=== PATIENT | female | born 1980 ===

== ENCOUNTER 2018-07-10 12:53 | Inpatient (IN) | payer SELFPAY ==
--- NOTE | 2018-07-10 13:25 | Emergency Department Report ---
Blank Doc - Documentation Documentation: This is a 38-year-old female that presents with chest pain with radiation to b ack. Stated has SOB as well. Tachycardia in traiage. This initial assessment/diagnostic orders/clinical plan/treatment(s) is/are subject to change based on patient's health status, clinical progression and re- assessment by fellow clinical providers in the ED. Further treatment and workup at subsequent clinical providers discretion. Patient/guardians urged not to elope from the ED as their condition may be serious if not clinically assessed and managed. Initial orders include: 1- Patient sent to [facility] for further evaluation and treatment 2- EKG 3- labs 4- CXR
[2018-07-10 14:04] LABS: Hematocrit 39.4 % (30.3-42.9); Hemoglobin 13.2 gm/dl (10.1-14.3); Mean Corpuscular HGB Conc 34 % (30-34); Mean Corpuscular Volume 86 fl (79-97); Platelet Count 326 K/mm3 (140-440); Red Blood Count 4.59 M/mm3 (3.65-5.03); Red Cell Distribution Width 13.7 % (13.2-15.2)
[2018-07-10 14:16] LABS: INR 1.07 (0.87-1.13)
[2018-07-10 14:17] LABS: Partial Thromboplastin Time 33.2 Sec. (24.2-36.6)
[2018-07-10 14:47] LABS: BUN/Creatinine Ratio 20; Blood Urea Nitrogen 10 mg/dL (7-17); Calcium 9.5 mg/dL (8.4-10.2); Hemolysis Index 6
[2018-07-10 14:48] LABS: Band Neutrophils # (Manual) 1.3 K/mm3; Basophils % (Manual) 0 % (0.0-1.8); Eosinophils % (Manual) 0 % (0.0-4.3); Total Cells Counted 100
[2018-07-10 14:49] LABS: Platelet Estimate Consistent w Auto; RBC Morphology Normal
--- NOTE | 2018-07-10 15:51 | Emergency Department Report ---
HPI <LAI GALEANOSINA Herbert - Last Filed: 07/10/18 23:31> - HPI HPI: 38-year-old female presents to the emergency department complaining of upper back pain that started last night and radiates around to her chest. She also complains of nausea without vomiting, throat pain and shortness of breath. She went to an urgent care clinic today where she said she was given a treatment and told to come to the emergency department. She denies any past medical history. No recent travel or sick contacts at home. She denies any tobacco or illicit drug use. She denies any fever, cough, nausea, vomiting or diaphoresis. <GREG CHILDS Finesse - Last Filed: 07/12/18 10:23> - General Chief Complaint: Chest Pain Time Seen by Provider: 07/10/18 13:23 ED Past Medical Hx <PEDRONITZA WALESKASINA Herbert - Last Filed: 07/10/18 23:31> - Past Medical History Previous Medical History?: No - Surgical History Past Surgical History?: No - Social History Smoking Status: Never Smoker Substance Use Type: None <GREG CHILDS Finesse - Last Filed: 07/12/18 10:23> - Medications Home Medications: Home Medications Medication Instructions Recorded Confirmed Last Taken Type Azithromycin [Zithromax Z-ANUSHKA] 250 mg PO BID #5 tablet 07/12/18 Unknown Rx HYDROcodone/APAP 5-325 [[place] 1 each PO Q4H PRN #10 tablet 07/12/18 Unknown Rx 5-325 mg TAB] methylPREDNISolone [Medrol] 4 mg PO DAILY 5 Days tab.ds.pk 07/12/18 Unknown Rx ED Review of Systems ROS: Stated complaint: CHEST/BACK PAIN Other details as noted in HPI <LAI GALEANOSINA Herbert - Last Filed: 07/10/18 23:31> ROS: Stated complaint: CHEST/BACK PAIN Other details as noted in HPI Comment: All other systems reviewed and negative Constitutional: denies: chills, fever Eyes: denies: eye pain, vision change ENT: throat pain. denies: ear pain Respiratory: shortness of breath. denies: cough Cardiovascular: chest pain. denies: edema Gastrointestinal: nausea. denies: abdominal pain, vomiting Genitourinary: denies: dysuria, discharge Musculoskeletal: back pain. denies: arthralgia Skin: denies: rash, lesions Neurological: denies: headache, weakness <GREG CHILDS S - Last Filed: 07/12/18 10:23> Physical Exam - Physical Exam Vital Signs: Vital Signs 07/10/18 07/10/18 07/10/18 13:22 16:26 16:55 Temperature 98.1 F 101.2 F H Pulse Rate 130 H Respiratory 20 18 Rate Blood Pressure 115/80 O2 Sat by Pulse 100 Oximetry 07/10/18 07/10/18 21:25 21:27 Temperature Pulse Rate 110 H 109 H Respiratory 12 16 Rate Blood Pressure 104/68 104/68 O2 Sat by Pulse Oximetry <SINA HOYT III - Last Filed: 07/10/18 23:31> - Physical Exam Vital Signs: Vital Signs 07/10/18 13:22 Temperature 98.1 F Pulse Rate 130 H Respiratory 20 Rate Blood Pressure 115/80 O2 Sat by Pulse 100 Oximetry Physical Exam: GENERAL: The patient is well-developed well-nourished. HENT: Normocephalic. Atraumatic. Patient has moist mucous membranes. There is bilateral tonsillar hypertrophy, erythema, and bilateral tonsillar exudates. No drooling or trismus. EYES: Extraocular motions are intact. Pupils equal reactive to light bilaterally. NECK: Supple. Trachea is midline. CHEST/LUNGS: Clear to auscultation. There is no respiratory distress noted. HEART/CARDIOVASCULAR: Regular. There is no tachycardia. There is no murmur. ABDOMEN: Abdomen is soft, nontender. Patient has normal bowel sounds. There is no abdominal distention. SKIN: Skin is warm and dry. NEURO: The patient is awake, alert, and oriented. The patient is cooperative. The patient has no focal neurologic deficits. The patient has normal speech. MUSCULOSKELETAL: There is no tenderness or deformity. There is no evidence of acute injury. <NAZGREG S - Last Filed: 07/12/18 10:23> ED Course Vital Signs 07/10/18 07/10/18 07/10/18 13:22 16:26 16:55 Temperature 98.1 F 101.2 F H Pulse Rate 130 H Respiratory 20 18 Rate Blood Pressure 115/80 O2 Sat by Pulse 100 Oximetry 07/10/18 07/10/18 21:25 21:27 Temperature Pulse Rate 110 H 109 H Respiratory 12 16 Rate Blood Pressure 104/68 104/68 O2 Sat by Pulse Oximetry - Reevaluation(s) Reevaluation #1: Discussed all results the patient. Patient agrees with plan of care and admission. Patient admitted to the hospitalist service. 07/10/18 23:35 - Consultations Consultation #1: Hospitalist consulted for admission. Hospitalist to admit patient. Hospitalist to assume care patient. Dr. Palumbo to see the patient 07/10/18 23:34 <SINA HOYT III - Last Filed: 07/10/18 23:31> Vital Signs 07/10/18 13:22 Temperature 98.1 F Pulse Rate 130 H Respiratory 20 Rate Blood Pressure 115/80 O2 Sat by Pulse 100 Oximetry <GREG CHILDS - Last Filed: 07/12/18 10:23> ED Medical Decision Making - Lab Data Result diagrams: 07/10/18 13:36 07/10/18 13:36 <SINA HOYT III - Last Filed: 07/10/18 23:31> - Lab Data Result diagrams: 07/12/18 05:24 07/12/18 05:24 - EKG Data -: EKG Interpreted by Me EKG shows normal: sinus rhythm, axis, intervals, QRS complexes, ST-T waves Rate: tachycardia (114 bpm) - EKG Data When compared to previous EKG there are: previous EKG unavailable Interpretation: other (sinus tachycardia.) - Radiology Data Radiology results: report reviewed, image reviewed interpreted by me: Chest x-ray does not show any acute process. There are no pleural effusions, obvious pneumonia and there is no pneumothorax. PROCEDURE: CT neck with contrast. TECHNIQUE: Computerized axial tomography of the soft tissue neck was performed following the IV injection of iodinated nonionic contrast. CT DOSE LENGTH PRODUCT: Not provided mGycm HISTORY: Neck pain. COMPARISONS: None . TECHNICAL QUALITY: Satisfactory. FINDINGS: The technologist has included images of the chest. There is a separate requisition for that study. I will limit my review to the images of the neck. The nasopharynx, oropharynx and hypopharynx appear normal. The larynx appears normal. The thyroid gland is normal in size. The parotid and submandibular salivary glands appear normal. There are numerous small cervical lymph nodes. The vascular structures enhance normally. There are no fluid collections. There are no abnormal masses. The bones appear intact. The mastoid air cells are clear. The paranasal sinuses are clear as far as visualized. IMPRESSION: Normal study. This document is electronically signed by Wayne Parnell MD., Jul 10 2018 10:41:26 PM ET Transcribed By: MARYANNE Dictated By: WAYNE PARNELL MD Electronically Authenticated By: WAYNE PARNELL MD Signed Date/Time: 07/10/18 2243 PROCEDURE: CT CHEST W CON TECHNIQUE: CT chest with intravenous contrast HISTORY: Chest pain COMPARISONS: FINDINGS: Heart and great vessels are unremarkable. No evidence for mediastinal mass or pathologic lymph node enlargement. No pulmonary infiltrate identified. No pleural fluid collections seen. Visualized portion of the upper abdomen mistreats no acute findings. IMPRESSION: No acute abnormality identified in the chest. This document is electronically signed by Leonardo Aguiar MD., Jul 10 2018 09:56:50 PM ET Transcribed By: MANJIT Dictated By: SOHEILA AGIUAR MD Electronically Authenticated By: SOHEILA AGUIAR MD Signed Date/Time: 07/10/18 3578 - Medical Decision Making Patient presents to the emergency department with throat pain, upper back pain that radiates around her chest. She does appear to have strep pharyngitis and this was confirmed with a rapid strep test. Her cardiac workup has been negative. However despite antibiotics, pain medication, IV fluid, she continues to have moderate tachycardia. Along with her 25,000 white count and fever, the patient is positive for sepsis. She will be admitted to hospital for further evaluation and treatment. - Differential Diagnosis strep pharyngitis, NM, peritonsillar abscess, retropharyngeal abscess <GREG CHILDS - Last Filed: 07/12/18 10:23> Critical care attestation.: If time is entered above; I have spent that time in minutes in the direct care of this critically ill patient, excluding procedure time. <SINA HOYT III - Last Filed: 07/10/18 23:31> Critical Care Time: No Critical care attestation.: If time is entered above; I have spent that time in minutes in the direct care of this critically ill patient, excluding procedure time. <GREG CHILDS - Last Filed: 07/12/18 10:23> ED Disposition Is pt being admited?: Yes Does the pt Need Aspirin: No Time of Disposition: 23:36 <SINA HOYT III - Last Filed: 07/10/18 23:31> Is pt being admited?: Yes <GREG CHILDS - Last Filed: 07/12/18 10:23> Clinical Impression: Tachycardia, Neck pain, Strep pharyngitis Sepsis Qualifiers: Sepsis type: sepsis due to unspecified organism Qualified Code(s): A41.9 - Sepsis, unspecified organism Chest pain Qualifiers: Chest pain type: unspecified Qualified Code(s): R07.9 - Chest pain, unspecified Fever Qualifiers: Fever type: unspecified Qualified Code(s): R50.9 - Fever, unspecified Disposition: DC-09 OP ADMIT IP TO THIS HOSP Condition: Fair
[2018-07-10] MEDS ORDERED: MORPHINE IV ONE (16:10)
[2018-07-10] MEDS ORDERED: ZITHROMAX 500 MG in NACL 0.9% 250ML 250 ML IV ONE (16:10)
--- NOTE | 2018-07-10 16:10 | XRay Report ---
PROCEDURE: XR CHEST 1V AP TECHNIQUE: Portable AP chest x-ray HISTORY: Chest Pain COMPARISONS: None FINDINGS: Heart size and pulmonary vasculature appear normal. No evidence of pulmonary edema or pleural effusio n. No endotracheal masses identified. No acute bone abnormalities are identified. There is mild thora cic scoliosis convex to the right upper thoracic spine. No acute bone abnormalities are seen. IMPRESSION: No evidence of acute cardiac or pulmonary process.. This document is electronically signed by Zbigniew Aden MD., Jul 10 2018 04:09:15 PM ET
[2018-07-10] MEDS ORDERED: NACL 0.9% 1000 ML 1,000 ML IV ONE ×2 (16:12→18:04)
[2018-07-10] MEDS ORDERED: TYLENOL PO ONE (18:04)
[2018-07-10] MEDS ORDERED: TORADOL IV ONE (18:04)
--- NOTE | 2018-07-10 21:58 | Cat Scan Report ---
PROCEDURE: CT CHEST W CON TECHNIQUE: CT chest with intravenous contrast HISTORY: Chest pain COMPARISONS: FINDINGS: Heart and great vessels are unremarkable. No evidence for mediastinal mass or pathologic lymph node enlargement. No pulmonary infiltrate identified. No pleural fluid collections seen. Visualized portion of the upper abdomen mistreats no acute findings. IMPRESSION: No acute abnormality identified in the chest. This document is electronically signed by Leonardo Sanchez MD., Jul 10 2018 09:56:50 PM ET
--- NOTE | 2018-07-10 22:43 | Cat Scan Report ---
PROCEDURE: CT neck with contrast. TECHNIQUE: Computerized axial tomography of the soft tissue neck was performed following the IV inje ction of iodinated nonionic contrast. CT DOSE LENGTH PRODUCT: Not provided mGycm HISTORY: Neck pain. COMPARISONS: None . TECHNICAL QUALITY: Satisfactory. FINDINGS: The technologist has included images of the chest. There is a separate requisition for that study. I will limit my review to the images of the neck. The nasopharynx, oropharynx and hypopharynx appear normal. The larynx appears normal. The thyroid gla nd is normal in size. The parotid and submandibular salivary glands appear normal. There are numerous small cervical lymph nodes. The vascular structures enhance normally. There are no fluid collections . There are no abnormal masses. The bones appear intact. The mastoid air cells are clear. The paranas al sinuses are clear as far as visualized. IMPRESSION: Normal study. This document is electronically signed by Wayne Betancur MD., Jul 10 2018 10:41:26 PM ET
[2018-07-10 22:54] LABS: Bacteria,Urine 1+ /HPF (Negative); Bilirubin,Urine NEG (Negative); Blood,Urine MOD (Negative); Color,Urine Yellow (Yellow); Mucus,Urine FEW /HPF; Protein,Urine <15 mg/dL mg/dL (Negative); Urobilinogen,Urine < 2.0 mg/dL (<2.0)
[2018-07-10 22:58] LABS: Amphetamine Screen,Urine PRESUMPTIVE NEGATIVE; Benzodiazepines Screen,Urine PRESUMPTIVE NEGATIVE; Cannabinoid Screen,Urine PRESUMPTIVE NEGATIVE; Cocaine Screen,Urine PRESUMPTIVE NEGATIVE; Methadone Screen,Urine PRESUMPTIVE NEGATIVE; Opiate Screen,Urine PRESUMPTIVE NEGATIVE
[2018-07-11] MEDS ORDERED: TYLENOL PO PRN (01:06)
[2018-07-11] MEDS ORDERED: SODIUM CHLORIDE FLUSH SYRINGE 10 ML IV PRN (01:06)
[2018-07-11] MEDS ORDERED: NACL 0.9% 1000 ML 1,000 ML IV ONE ×2 (01:09→16:00)
[2018-07-11] MEDS: NORCO 5/325 PO PRN ×4 (01:43→21:02)
--- NOTE | 2018-07-11 03:40 | History and Physical Report ---
History of Present Illness Date of examination: 07/11/18 Chief complaint: Upper back pain History of present illness: Patient is a 38-year-old female with no known past medical history who presented to the ED on account of 2 days history of upper back pain radiating to her chest. She has positive history of sore throat, fever with chills, palpitation, headaches, nausea without vomiting and lightheadedness. She denies shortness of breath, diaphoresis, cough, runny nose, leg swelling, orthopnea or PND. No syncope or loss of consciousness. No abdominal pain, constipation, diarrhea, bleeding from any orifice, dysuria or frequency. Past History Past Medical History: No medical history Past Surgical History: No surgical history Social history: no significant social history (she denies tobacco, alcohol or illicit drug use) Family history: no significant family history (reviewed and noncontributory) Medications and Allergies Allergies Allergy/AdvReac Type Severity Reaction Status Date / Time No Known Allergies Allergy Unverified 07/10/18 13:25 Home Medications Medication Instructions Recorded Confirmed Last Taken Type No Known Home Medications [No 07/10/18 07/10/18 Unknown History Reported Home Medications] Active Meds: Active Medications Acetaminophen (Tylenol) 650 mg PO Q4H PRN PRN Reason: Pain MILD(1-3)/Fever >100.5/FREED Acetaminophen/Hydrocodone Bitart ([place] 5/325) 1 each PO Q4H PRN PRN Reason: Pain, Moderate (4-6) Last Admin: 07/11/18 01:43 Dose: 1 each Documented by: Sodium Chloride (Nacl 0.9% 1000 Ml) 1,000 mls @ 125 mls/hr IV DIRECT ROLAN Azithromycin 500 mg/ Sodium (Chloride) 250 mls @ 250 mls/hr IV Q24HR ROLAN Ondansetron HCl (Zofran) 4 mg IV Q8H PRN PRN Reason: Nausea And Vomiting Sodium Chloride (Sodium Chloride Flush Syringe 10 Ml) 10 ml IV BID ROLAN Sodium Chloride (Sodium Chloride Flush Syringe 10 Ml) 10 ml IV PRN PRN PRN Reason: LINE FLUSH Review of Systems All systems: negative (except as documented in the HPI, all other systems were reviewed and negative) Exam - Constitutional Vitals: Temp Pulse Resp BP Pulse Ox 99.1 F 90 18 102/61 97 07/10/18 22:15 07/11/18 02:30 07/11/18 02:43 07/11/18 02:30 07/11/18 02:30 General appearance: Present: no acute distress, well-nourished - EENT Eyes: Present: PERRL ENT: hearing intact, clear oral mucosa - Neck Neck: Present: supple, normal ROM - Respiratory Respiratory effort: normal Respiratory: bilateral: CTA - Cardiovascular Rhythm: regular (with tachycardia) Heart Sounds: Present: S1 & S2. Absent: rub, click - Extremities Extremities: No edema Peripheral Pulses: within normal limits - Abdominal General gastrointestinal: Present: soft, non-tender, non-distended, normal bowel sounds Female genitourinary: Present: deferred - Integumentary Integumentary: Present: clear, warm, dry - Musculoskeletal Musculoskeletal: gait normal, strength equal bilaterally - Psychiatric Psychiatric: appropriate mood/affect, intact judgment & insight - Neurologic Neurologic: CNII-XII intact, moves all extremities Results - Labs CBC & Chem 7: 07/10/18 13:36 07/10/18 13:36 Labs: Laboratory Last Values WBC 25.8 K/mm3 (4.5-11.0) H 07/10/18 13:36 RBC 4.59 M/mm3 (3.65-5.03) 07/10/18 13:36 Hgb 13.2 gm/dl (10.1-14.3) 07/10/18 13:36 Hct 39.4 % (30.3-42.9) 07/10/18 13:36 MCV 86 fl (79-97) 07/10/18 13:36 MCH 29 pg (28-32) 07/10/18 13:36 MCHC 34 % (30-34) 07/10/18 13:36 RDW 13.7 % (13.2-15.2) 07/10/18 13:36 Plt Count 326 K/mm3 (140-440) 07/10/18 13:36 Add Manual Diff Complete 07/10/18 13:36 Total Counted 100 07/10/18 13:36 Seg Neutrophils % [employer] 07/10/18 13:36 Seg Neuts % (Manual) 90.0 % (40.0-70.0) H 07/10/18 13:36 Band Neutrophils % 5.0 % 07/10/18 13:36 Lymphocytes % (Manual) 4.0 % (13.4-35.0) L 07/10/18 13:36 Reactive Lymphs % (Man) 0 % 07/10/18 13:36 Monocytes % (Manual) 1.0 % (0.0-7.3) 07/10/18 13:36 Eosinophils % (Manual) 0 % (0.0-4.3) 07/10/18 13:36 Basophils % (Manual) 0 % (0.0-1.8) 07/10/18 13:36 Metamyelocytes % 0 % 07/10/18 13:36 Myelocytes % 0 % 07/10/18 13:36 Promyelocytes % 0 % 07/10/18 13:36 Blast Cells % 0 % 07/10/18 13:36 Nucleated RBC % Not Reportable 07/10/18 13:36 Seg Neutrophils # Man 23.2 K/mm3 (1.8-7.7) H 07/10/18 13:36 Band Neutrophils # 1.3 K/mm3 07/10/18 13:36 Lymphocytes # (Manual) 1.0 K/mm3 (1.2-5.4) L 07/10/18 13:36 Abs React Lymphs (Man) 0.0 K/mm3 07/10/18 13:36 Monocytes # (Manual) 0.3 K/mm3 (0.0-0.8) 07/10/18 13:36 Eosinophils # (Manual) 0.0 K/mm3 (0.0-0.4) 07/10/18 13:36 Basophils # (Manual) 0.0 K/mm3 (0.0-0.1) 07/10/18 13:36 Metamyelocytes # 0.0 K/mm3 07/10/18 13:36 Myelocytes # 0.0 K/mm3 07/10/18 13:36 Promyelocytes # 0.0 K/mm3 07/10/18 13:36 Blast Cells # 0.0 K/mm3 07/10/18 13:36 WBC Morphology Not Reportable 07/10/18 13:36 Hypersegmented Neuts Not Reportable 07/10/18 13:36 Hyposegmented Neuts Not Reportable 07/10/18 13:36 Hypogranular Neuts Not Reportable 07/10/18 13:36 Smudge Cells Not Reportable 07/10/18 13:36 Toxic Granulation Not Reportable 07/10/18 13:36 Toxic Vacuolation Not Reportable 07/10/18 13:36 Dohle Bodies Not Reportable 07/10/18 13:36 Pelger-Huet Anomaly Not Reportable 07/10/18 13:36 Cj Rods Not Reportable 07/10/18 13:36 Platelet Estimate Consistent w auto 07/10/18 13:36 Clumped Platelets Not Reportable 07/10/18 13:36 Plt Clumps, EDTA Not Reportable 07/10/18 13:36 Large Platelets Not Reportable 07/10/18 13:36 Giant Platelets Not Reportable 07/10/18 13:36 Platelet Satelliting Not Reportable 07/10/18 13:36 Plt Morphology Comment Not Reportable 07/10/18 13:36 RBC Morphology Normal 07/10/18 13:36 Dimorphic RBCs Not Reportable 07/10/18 13:36 Polychromasia Not Reportable 07/10/18 13:36 Hypochromasia Not Reportable 07/10/18 13:36 Poikilocytosis Not Reportable 07/10/18 13:36 Anisocytosis Not Reportable 07/10/18 13:36 Microcytosis Not Reportable 07/10/18 13:36 Macrocytosis Not Reportable 07/10/18 13:36 Spherocytes Not Reportable 07/10/18 13:36 Pappenheimer Bodies Not Reportable 07/10/18 13:36 Sickle Cells Not Reportable 07/10/18 13:36 Target Cells Not Reportable 07/10/18 13:36 Tear Drop Cells Not Reportable 07/10/18 13:36 Ovalocytes Not Reportable 07/10/18 13:36 Helmet Cells Not Reportable 07/10/18 13:36 [place] Bodies Not Reportable 07/10/18 13:36 Gallina Rings Not Reportable 07/10/18 13:36 John Cells Not Reportable 07/10/18 13:36 Bite Cells Not Reportable 07/10/18 13:36 Crenated Cell Not Reportable 07/10/18 13:36 Elliptocytes Not Reportable 07/10/18 13:36 Acanthocytes (Spur) Not Reportable 07/10/18 13:36 Rouleaux Not Reportable 07/10/18 13:36 Hemoglobin C Crystals Not Reportable 07/10/18 13:36 Schistocytes Not Reportable 07/10/18 13:36 Malaria parasites Not Reportable 07/10/18 13:36 Kieran Bodies Not Reportable 07/10/18 13:36 Hem Pathologist Commnt No 07/10/18 13:36 PT 14.6 Sec. (12.2-14.9) 07/10/18 13:36 INR 1.07 (0.87-1.13) 07/10/18 13:36 APTT 33.2 Sec. (24.2-36.6) 07/10/18 13:36 D-Dimer 136.45 ng/mlDDU (0-234) 07/10/18 13:36 Sodium 137 mmol/L (137-145) 07/10/18 13:36 Potassium 4.3 mmol/L (3.6-5.0) 07/10/18 13:36 Chloride 99.7 mmol/L (98-107) 07/10/18 13:36 Carbon Dioxide 22 mmol/L (22-30) 07/10/18 13:36 Anion Gap 20 mmol/L 07/10/18 13:36 BUN 10 mg/dL (7-17) 07/10/18 13:36 Creatinine 0.5 mg/dL (0.7-1.2) L 07/10/18 13:36 Estimated GFR > 60 ml/min 07/10/18 13:36 BUN/Creatinine Ratio 20 % 07/10/18 13:36 Glucose 117 mg/dL (65-100) H 07/10/18 13:36 Lactic Acid 0.50 mmol/L (0.7-2.0) L 07/10/18 19:59 Calcium 9.5 mg/dL (8.4-10.2) 07/10/18 13:36 Troponin T < 0.010 ng/mL (0.00-0.029) 07/10/18 16:13 HCG, Qual Negative (Negative) 07/10/18 13:36 Urine Color Yellow (Yellow) 07/10/18 22:27 Urine Turbidity Clear (Clear) 07/10/18 22:27 Urine pH 7.0 (5.0-7.0) 07/10/18 22:27 Ur Specific [place] 1.060 (1.003-1.030) H 07/10/18 22:27 Urine Protein <15 mg/dl mg/dL (Negative) 07/10/18 22:27 Urine Glucose (UA) Neg mg/dL (Negative) 07/10/18 22:27 Urine Ketones 80 mg/dL (Negative) 07/10/18 22:27 Urine Blood Mod (Negative) 07/10/18 22:27 Urine Nitrite Neg (Negative) 07/10/18 22:27 Urine Bilirubin Neg (Negative) 07/10/18 22:27 Urine Urobilinogen < 2.0 mg/dL (<2.0) 07/10/18 22:27 Ur Leukocyte Esterase Neg (Negative) 07/10/18 22:27 Urine WBC (Auto) 2.0 /HPF (0.0-6.0) 07/10/18 22:27 Urine RBC (Auto) 39.0 /HPF (0.0-6.0) 07/10/18 22:27 U Epithel Cells (Auto) 1.0 /HPF (0-13.0) 07/10/18 22:27 Urine Bacteria (Auto) 1+ /HPF (Negative) 07/10/18 22:27 Urine Mucus Few /HPF 07/10/18 22:27 Urine Opiates Screen Presumptive negative 07/10/18 22:27 Urine Methadone Screen Presumptive negative 07/10/18 22:27 Ur Barbiturates Screen Presumptive negative 07/10/18 22:27 Ur Phencyclidine Scrn Presumptive negative 07/10/18 22:27 Ur Amphetamines Screen Presumptive negative 07/10/18 22:27 U Benzodiazepines Scrn Presumptive negative 07/10/18 22:27 Urine Cocaine Screen Presumptive negative 07/10/18 22:27 U Marijuana (THC) Screen Presumptive negative 07/10/18 22:27 Drugs of Abuse Note Disclamer 07/10/18 22:27 Group A Strep Rapid Positive (Negative) A 07/10/18 15:10 Assessment and Plan Assessment and plan: Sepsis probably secondary to strept pharyngitis -On IV antibiotic -Chest CT scan negative -Urinalysis negative. Blood cultures pending Hypotension secondary to the sepsis -On IV fluid, will monitor blood pressure Atypical chest pain -Serial troponin level monitoring DVT prophylaxis with SCD Disposition: For discharge when medically stable Time spent: 38 minutes
[2018-07-11] MEDS ORDERED: NACL 0.9% 1000 ML 1,000 ML ONE (04:15)
[2018-07-11 08:52] LABS: Basophils # (Auto) 0.1 K/mm3 (0.0-0.1); Basophils % (Auto) 0.5 % (0.0-1.8); Eosinophils # (Auto) 0.1 K/mm3 (0.0-0.4); Eosinophils % (Auto) 0.8 % (0.0-4.3); Hematocrit 35.5 % (30.3-42.9); Hemoglobin 11.8 gm/dl (10.1-14.3); Lymphocytes # (Auto) 1.5 K/mm3 (1.2-5.4); Mean Corpuscular HGB Conc 33 % (30-34); Mean Corpuscular Volume 86 fl (79-97); Monocytes % (Auto) 6.1 % (0.0-7.3); Platelet Count 258 K/mm3 (140-440); Red Blood Count 4.11 M/mm3 (3.65-5.03); Red Cell Distribution Width 13.8 % (13.2-15.2)
[2018-07-11] MEDS: SODIUM CHLORIDE FLUSH SYRINGE 10 ML IV SCH ×2 (10:38→21:05)
[2018-07-11] MEDS: ZITHROMAX 500 MG in NACL 0.9% 250ML 250 ML IV SCH (10:39)
[2018-07-11] MEDS: NACL 0.9% 1000 ML 1,000 ML IV SCH ×2 (10:40→17:37)
[2018-07-11] MEDS ORDERED: AFLURIA QUAD 2018-2019 SYRINGE IM ONE (12:00)
[2018-07-11] MEDS: MEDROL PO SCH (13:25)
--- NOTE | 2018-07-11 15:00 | Progress Note ---
Assessment and Plan Assessment and plan: Patient is a 38-year-old female with no known past medical history who presented to the ED on account of 2 days history of upper back pain radiating to her chest. She has positive history of sore throat, fever with chills, palpitation, headaches, nausea without vomiting and lightheadedness. She denies shortness of breath, diaphoresis, cough, runny nose, leg swelling, orthopnea or PND. No syncope or loss of consciousness. No abdominal pain, constipation, diarrhea, bleeding from any orifice, dysuria or frequency. Sepsis probably secondary to strept pharyngitis -On IV antibiotic -Chest CT scan negative -Urinalysis negative. Blood cultures pending -WBC trended down. -will add steroids due to patient's mentation off without aphasia. Hypotension secondary to the sepsis -On IV fluid, will monitor blood pressure Atypical chest pain -Serial troponin level monitoring -Likely secondary to strep throat. DVT prophylaxis with SCD Disposition: For discharge when medically stable Plan of care discussed with the patient detail Despite a discharge of 24-48 hours History Interval history: Patient is on examining today in no acute distress still reports some odynophagia with swallowing. Otherwise denies any nausea vomiting or diarrhea. She denies of this time any chest pain. Hospitalist Physical - Physical exam Narrative exam: VITAL SIGNS: Reviewed. GENERAL: The patient appeared well nourished and normally developed, Vital signs as documented. HEAD: No signs of head trauma. EYES: Pupils are equal. Extraocular motions intact. EARS: Hearing grossly intact. MOUTH: Oropharynx is normal. NECK: No adenopathy, no JVD. Mildly tender on the right side. CHEST: Chest with clear breath sounds bilaterally. No wheezes, rales, or rhonchi. CARDIAC: Regular rate and rhythm. S1 and S2, without murmurs, gallops, or rubs. VASCULAR: No Edema. Peripheral pulses normal and equal in all extremities. ABDOMEN: Soft, non tender and non distended. No rebound or guarding, and no masses palpated. Bowel Sounds normal. MUSCULOSKELETAL: Good range of motion of all major joints. Extremities without clubbing, cyanosis or edema. NEUROLOGIC EXAM: Alert and oriented x 3 No focal sensory or strength deficits. Speech normal. Follows commands. PSYCHIATRIC: Mood normal. SKIN: No rash or lesions. - Constitutional Vitals: Temp Pulse Resp BP Pulse Ox 97.7 F 86 18 89/61 100 07/11/18 11:29 07/11/18 11:29 07/11/18 11:29 07/11/18 11:29 07/11/18 11:29 General appearance: Present: no acute distress, well-nourished Results - Labs CBC & Chem 7: 07/11/18 08:29 07/10/18 13:36 Labs: Laboratory Last Values WBC 16.8 K/mm3 (4.5-11.0) H 07/11/18 08:29 RBC 4.11 M/mm3 (3.65-5.03) 07/11/18 08:29 Hgb 11.8 gm/dl (10.1-14.3) 07/11/18 08:29 Hct 35.5 % (30.3-42.9) 07/11/18 08:29 MCV 86 fl (79-97) 07/11/18 08:29 MCH 29 pg (28-32) 07/11/18 08: MCHC 33 % (30-34) 07/11/18 08:29 RDW 13.8 % (13.2-15.2) 07/11/18 08:29 Plt Count 258 K/mm3 (140-440) 07/11/18 08:29 Lymph % (Auto) 9.0 % (13.4-35.0) L 07/11/18 08:29 [place] % (Auto) 6.1 % (0.0-7.3) 07/11/18 08:29 Eos % (Auto) 0.8 % (0.0-4.3) 07/11/18 08:29 Baso % (Auto) 0.5 % (0.0-1.8) 07/11/18 08:29 Lymph # 1.5 K/mm3 (1.2-5.4) 07/11/18 08:29 [place] # 1.0 K/mm3 (0.0-0.8) H 07/11/18 08:29 Eos # 0.1 K/mm3 (0.0-0.4) 07/11/18 08:29 Baso # 0.1 K/mm3 (0.0-0.1) 07/11/18 08:29 Add Manual Diff Complete 07/10/18 13:36 Total Counted 100 07/10/18 13:36 Seg Neutrophils % 83.6 % (40.0-70.0) H 07/11/18 08:29 Seg Neuts % (Manual) 90.0 % (40.0-70.0) H 07/10/18 13:36 Band Neutrophils % 5.0 % 07/10/18 13:36 Lymphocytes % (Manual) 4.0 % (13.4-35.0) L 07/10/18 13:36 Reactive Lymphs % (Man) 0 % 07/10/18 13:36 Monocytes % (Manual) 1.0 % (0.0-7.3) 07/10/18 13:36 Eosinophils % (Manual) 0 % (0.0-4.3) 07/10/18 13:36 Basophils % (Manual) 0 % (0.0-1.8) 07/10/18 13:36 Metamyelocytes % 0 % 07/10/18 13:36 Myelocytes % 0 % 07/10/18 13:36 Promyelocytes % 0 % 07/10/18 13:36 Blast Cells % 0 % 07/10/18 13:36 Nucleated RBC % Not Reportable 07/10/18 13:36 Seg Neutrophils # 14.1 K/mm3 (1.8-7.7) H 07/11/18 08:29 Seg Neutrophils # Man 23.2 K/mm3 (1.8-7.7) H 07/10/18 13:36 Band Neutrophils # 1.3 K/mm3 07/10/18 13:36 Lymphocytes # (Manual) 1.0 K/mm3 (1.2-5.4) L 07/10/18 13:36 Abs React Lymphs (Man) 0.0 K/mm3 07/10/18 13:36 Monocytes # (Manual) 0.3 K/mm3 (0.0-0.8) 07/10/18 13:36 Eosinophils # (Manual) 0.0 K/mm3 (0.0-0.4) 07/10/18 13:36 Basophils # (Manual) 0.0 K/mm3 (0.0-0.1) 07/10/18 13:36 Metamyelocytes # 0.0 K/mm3 07/10/18 13:36 Myelocytes # 0.0 K/mm3 07/10/18 13:36 Promyelocytes # 0.0 K/mm3 07/10/18 13:36 Blast Cells # 0.0 K/mm3 07/10/18 13:36 WBC Morphology Not Reportable 07/10/18 13:36 Hypersegmented Neuts Not Reportable 07/10/18 13:36 Hyposegmented Neuts Not Reportable 07/10/18 13:36 Hypogranular Neuts Not Reportable 07/10/18 13:36 Smudge Cells Not Reportable 07/10/18 13:36 Toxic Granulation Not Reportable 07/10/18 13:36 Toxic Vacuolation Not Reportable 07/10/18 13:36 Dohle Bodies Not Reportable 07/10/18 13:36 Pelger-Huet Anomaly Not Reportable 07/10/18 13:36 Cj Rods Not Reportable 07/10/18 13:36 Platelet Estimate Consistent w auto 07/10/18 13:36 Clumped Platelets Not Reportable 07/10/18 13:36 Plt Clumps, EDTA Not Reportable 07/10/18 13:36 Large Platelets Not Reportable 07/10/18 13:36 Giant Platelets Not Reportable 07/10/18 13:36 Platelet Satelliting Not Reportable 07/10/18 13:36 Plt Morphology Comment Not Reportable 07/10/18 13:36 RBC Morphology Normal 07/10/18 13:36 Dimorphic RBCs Not Reportable 07/10/18 13:36 Polychromasia Not Reportable 07/10/18 13:36 Hypochromasia Not Reportable 07/10/18 13:36 Poikilocytosis Not Reportable 07/10/18 13:36 Anisocytosis Not Reportable 07/10/18 13:36 Microcytosis Not Reportable 07/10/18 13:36 Macrocytosis Not Reportable 07/10/18 13:36 Spherocytes Not Reportable 07/10/18 13:36 Pappenheimer Bodies Not Reportable 07/10/18 13:36 Sickle Cells Not Reportable 07/10/18 13:36 Target Cells Not Reportable 07/10/18 13:36 Tear Drop Cells Not Reportable 07/10/18 13:36 Ovalocytes Not Reportable 07/10/18 13:36 Helmet Cells Not Reportable 07/10/18 13:36 Duncan-Kremmling Bodies Not Reportable 07/10/18 13:36 [place] Rings Not Reportable 07/10/18 13:36 Lapaz Cells Not Reportable 07/10/18 13:36 Bite Cells Not Reportable 07/10/18 13:36 Crenated Cell Not Reportable 07/10/18 13:36 Elliptocytes Not Reportable 07/10/18 13:36 Acanthocytes (Spur) Not Reportable 07/10/18 13:36 Rouleaux Not Reportable 07/10/18 13:36 Hemoglobin C Crystals Not Reportable 07/10/18 13:36 Schistocytes Not Reportable 07/10/18 13:36 Malaria parasites Not Reportable 07/10/18 13:36 Kieran Bodies Not Reportable 07/10/18 13:36 Hem Pathologist Commnt No 07/10/18 13:36 PT 14.6 Sec. (12.2-14.9) 07/10/18 13:36 INR 1.07 (0.87-1.13) 07/10/18 13:36 APTT 33.2 Sec. (24.2-36.6) 07/10/18 13:36 D-Dimer 136.45 ng/mlDDU (0-234) 07/10/18 13:36 Sodium 137 mmol/L (137-145) 07/10/18 13:36 Potassium 4.3 mmol/L (3.6-5.0) 07/10/18 13:36 Chloride 99.7 mmol/L (98-107) 07/10/18 13:36 Carbon Dioxide 22 mmol/L (22-30) 07/10/18 13:36 Anion Gap 20 mmol/L 07/10/18 13:36 BUN 10 mg/dL (7-17) 07/10/18 13:36 Creatinine 0.5 mg/dL (0.7-1.2) L 07/10/18 13:36 Estimated GFR > 60 ml/min 07/10/18 13:36 BUN/Creatinine Ratio 20 % 07/10/18 13:36 Glucose 117 mg/dL (65-100) H 07/10/18 13:36 POC Glucose 125 (70-105) H 07/11/18 11:35 Lactic Acid 0.50 mmol/L (0.7-2.0) L 07/10/18 19:59 Calcium 9.5 mg/dL (8.4-10.2) 07/10/18 13:36 Troponin T < 0.010 ng/mL (0.00-0.029) 07/10/18 16:13 HCG, Qual Negative (Negative) 07/10/18 13:36 Urine Color Yellow (Yellow) 07/10/18 22:27 Urine Turbidity Clear (Clear) 07/10/18 22:27 Urine pH 7.0 (5.0-7.0) 07/10/18 22:27 Ur Specific [place] 1.060 (1.003-1.030) H 07/10/18 22:27 Urine Protein <15 mg/dl mg/dL (Negative) 07/10/18 22:27 Urine Glucose (UA) Neg mg/dL (Negative) 07/10/18 22:27 Urine Ketones 80 mg/dL (Negative) 07/10/18 22:27 Urine Blood Mod (Negative) 07/10/18 22:27 Urine Nitrite Neg (Negative) 07/10/18 22:27 Urine Bilirubin Neg (Negative) 07/10/18 22:27 Urine Urobilinogen < 2.0 mg/dL (<2.0) 07/10/18 22:27 Ur Leukocyte Esterase Neg (Negative) 07/10/18 22:27 Urine WBC (Auto) 2.0 /HPF (0.0-6.0) 07/10/18 22:27 Urine RBC (Auto) 39.0 /HPF (0.0-6.0) 07/10/18 22:27 U Epithel Cells (Auto) 1.0 /HPF (0-13.0) 07/10/18 22:27 Urine Bacteria (Auto) 1+ /HPF (Negative) 07/10/18 22:27 Urine Mucus Few /HPF 07/10/18 22:27 Urine Opiates Screen Presumptive negative 07/10/18 22:27 Urine Methadone Screen Presumptive negative 07/10/18 22:27 Ur Barbiturates Screen Presumptive negative 07/10/18 22:27 Ur Phencyclidine Scrn Presumptive negative 07/10/18 22:27 Ur Amphetamines Screen Presumptive negative 07/10/18 22:27 U Benzodiazepines Scrn Presumptive negative 07/10/18 22:27 Urine Cocaine Screen Presumptive negative 07/10/18 22:27 U Marijuana (THC) Screen Presumptive negative 07/10/18 22:27 Drugs of Abuse Note Disclamer 07/10/18 22:27 Group A Strep Rapid Positive (Negative) A 07/10/18 15:10 Active Medications - Current Medications Current Medications: Generic Name Dose Route Start Last Admin Trade Name Freq PRN Reason Stop Dose Admin Acetaminophen 650 mg 07/11/18 01:06 Tylenol PO Q4H PRN Pain MILD(1-3)/Fever >100.5/FREED Acetaminophen/Hydrocodone Bitart 1 each 07/11/18 01:06 07/11/18 08:30 [place] 5/325 PO 1 each Q4H PRN Administration Pain, Moderate (4-6) Sodium Chloride 1,000 mls @ 125 mls/hr 07/11/18 02:00 07/11/18 10:40 Nacl 0.9% 1000 Ml IV 125 mls/hr DIRECT ROLAN Administration Azithromycin 500 mg/ Sodium 250 mls @ 250 mls/hr 07/11/18 10:00 07/11/18 10:39 Chloride IV 250 mls/hr Q24HR ROLAN Administration Methylprednisolone 4 mg 07/11/18 14:00 07/11/18 13:25 Medrol PO 4 mg QDAY ROLAN Administration Ondansetron HCl 4 mg 07/11/18 01:06 Zofran IV Q8H PRN Nausea And Vomiting Sodium Chloride 10 ml 07/11/18 10:00 07/11/18 10:38 Sodium Chloride Flush Syringe 10 Ml IV 10 ml BID ROLAN Administration Sodium Chloride 10 ml 07/11/18 01:06 Sodium Chloride Flush Syringe 10 Ml IV PRN PRN LINE FLUSH
[2018-07-11] MEDS: ZOFRAN IV PRN (16:05)
[2018-07-12] MEDS: NACL 0.9% 1000 ML 1,000 ML IV SCH (01:40)
[2018-07-12 05:45] LABS: Basophils # (Auto) 0.1 K/mm3 (0.0-0.1); Basophils % (Auto) 0.7 % (0.0-1.8); Eosinophils # (Auto) 0.2 K/mm3 (0.0-0.4); Eosinophils % (Auto) 1.7 % (0.0-4.3); Hemoglobin 11.2 gm/dl (10.1-14.3); Lymphocytes # (Auto) 2.6 K/mm3 (1.2-5.4); Lymphocytes % (Auto) 21.5 % (13.4-35.0); Mean Corpuscular HGB Conc 34 % (30-34); Mean Corpuscular Volume 86 fl (79-97); Monocytes # (Auto) 0.8 K/mm3 (0.0-0.8); Monocytes % (Auto) 6.9 % (0.0-7.3); Platelet Count 272 K/mm3 (140-440); Red Blood Count 3.85 M/mm3 (3.65-5.03); Red Cell Distribution Width 13.5 % (13.2-15.2)
[2018-07-12 06:10] LABS: BUN/Creatinine Ratio 8; Blood Urea Nitrogen 3 mg/dL (7-17); Calcium 7.8 mg/dL (8.4-10.2); Hemolysis Index 3
[2018-07-12] MEDS: NORCO 5/325 PO PRN (08:44)
[2018-07-12] MEDS: ZOFRAN IV PRN (09:03)
[2018-07-12] MEDS: SODIUM CHLORIDE FLUSH SYRINGE 10 ML IV SCH (09:03)
[2018-07-12] MEDS: MEDROL PO SCH (09:03)
[2018-07-12] MEDS: ZITHROMAX 500 MG in NACL 0.9% 250ML 250 ML IV SCH (09:04)
[2018-07-12] MEDS ORDERED: K-DUR PO NR (09:34)
--- NOTE | 2018-07-12 09:39 | Discharge Summary ---
Providers - Providers Date of Admission: 07/11/18 01:16 Attending physician: DARY PARK MD [facility] Hospital[facility] Reason for admission: NECK PAIN Condition: Fair Hospital course: Patient is a 38-year-old female with no known past medical history who presented to the ED on account of 2 days history of upper back pain radiating to her chest. She has positive history of sore throat, fever with chills, palpitation, headaches, nausea without vomiting and lightheadedness. She denies shortness of breath, diaphoresis, cough, runny nose, leg swelling, orthopnea or PND. No syncope or loss of consciousness. No abdominal pain, constipation, diarrhea, bleeding from any orifice, dysuria or frequency. Sepsis probably secondary to strept pharyngitis - Treated with IV antibiotic, Now afebrile, tolerating PO, will plan on discharge to complete outpatient oral anbx - Patient improved faster than expected -Chest CT scan negative -Urinalysis negative. Blood cultures pending -WBC trended down. -Continue steroids for 3 days for dysphagia. Hypotension secondary to the sepsis -treated with fluids Atypical chest pain -Serial troponin level monitoring and was negative. Pain more in the left side of the neck and resolved -Likely secondary to strep throat. Disposition: DC-01 TO HOME OR SELFCARE Time spent for discharge: 35 MINS Core Measure Documentation - Palliative Care Palliative Care/ Comfort Measures: Not Applicable - Core Measures Any of the following diagnoses?: none Exam - Physical Exam Narrative exam: VITAL SIGNS: Reviewed. GENERAL: The patient appeared well nourished and normally developed, Vital signs as documented. HEAD: No signs of head trauma. EYES: Pupils are equal. Extraocular motions intact. EARS: Hearing grossly intact. MOUTH: Oropharynx is normal. NECK: No adenopathy, no JVD. Mildly tender on the right side. CHEST: Chest with clear breath sounds bilaterally. No wheezes, rales, or rhonchi. CARDIAC: Regular rate and rhythm. S1 and S2, without murmurs, gallops, or rubs. VASCULAR: No Edema. Peripheral pulses normal and equal in all extremities. ABDOMEN: Soft, non tender and non distended. No rebound or guarding, and no masses palpated. Bowel Sounds normal. MUSCULOSKELETAL: Good range of motion of all major joints. Extremities without clubbing, cyanosis or edema. NEUROLOGIC EXAM: Alert and oriented x 3 No focal sensory or strength deficits. Speech normal. Follows commands. PSYCHIATRIC: Mood normal. SKIN: No rash or lesions. - Constitutional Vitals: Temp Pulse Resp BP Pulse Ox 97.9 F 84 16 90/55 99 07/12/18 04:10 07/12/18 04:10 07/12/18 04:10 07/12/18 04:10 07/12/18 04:10 Plan Activity: advance as tolerated, fall precautions Diet: low fat Special Instructions: record daily BP diary Follow up with: MARBELLA ANTONRED CLIFF MD MERARI [Primary Care Provider] - 7 Days Prescriptions: methylPREDNISolone [Medrol] 4 mg PO DAILY 5 Days tab.ds.pk Azithromycin [Zithromax Z-ANUSHKA] 250 mg PO BID #5 tablet Ondansetron [Zofran Odt] 4 mg PO Q6HR PRN #20 tab.rapdis PRN Reason: Nausea
[2018-07-12 13:58] VITALS: BP 113/78
[2018-07-12] MEDS ORDERED: K-DUR PO ONE (14:06)
== END 2018-07-12 14:30 | disposition home or self-care (01) | DRG 872 ==
LOC: ED 12:53 → 4A 07-11 01:16
PROVIDERS: ADMIT Internal Medicine; ATTEND Internal Medicine
DX: A41.9 Sepsis, unspecified organism (principal); J02.0 Streptococcal pharyngitis; Z79.899 Other long term (current) drug therapy
CPT/HCPCS: 36415; 70491; 71045; 71260; 80048; 80307; 81001; 82140; 82962; 84484; 84703; 85007; 85025; 85379; 85610; 85730; 87040; 87430; 90686; 93005; 93010; 96374; 99285; G0378; J0456; J1885; J2270; J2405; J7030; J7050; J7509; Q9967